=== PATIENT | male | born 1965 | race Caucasian/White ===

== ENCOUNTER 2017-08-16 07:52 | Inpatient (IN) | payer MEDICARE, MEDICAID ==
[~2017-08-16] VITALS: Ht 177.8 cm; Wt 748.9 kg
[~2017-08-16 07:52] MED LIST: LACO200T2 PO; LEVE100S PO; ZONI100C42 PO
[2017-08-16] MEDS ORDERED: LORAZEPAM 1 MG TABLET ONE (08:08)
--- NOTE | 2017-08-16 08:10 | NUR ---
PT BIBA FROM HOME S/P SEIZURE X 3 SINCE THIS AM. HX OF SZ. IV ACCESS CORPORATE LAW ASSISTANT. PT AAOX3. NO ORAL/ HEAD TRAUMA NOTED. VSS. SEEN BY FOR EVFERNANDO. SZ PRECUATIONS IMPLEMENTED. SAFETY AND COMFORT MEASURES PROVIDED. WILL MONITOR.
--- NOTE | 2017-08-16 08:20 | NUR ---
SAWDUST DRIER AT FOR BLOOD DRAW.
[2017-08-16] MEDS ORDERED: LORAZEPAM INJ 2 MG/ML VIAL IV ONE (08:30)
[2017-08-16] MEDS ORDERED: LEVETIRACETAM (500MG) 500 MG in IV NS 0.9% 100 ML IV SCH (08:30)
[2017-08-16 09:01] LABS: CREATININE 1.1 mg/dL (0.6-1.3); POTASSIUM 3.7 mmol/L (3.5-5.1)
--- NOTE | 2017-08-16 11:37 | NUR ---
DR ASHRAF ON THE PHONE WITH [facility]
--- NOTE | 2017-08-16 11:37 | NUR ---
CALLED [facility] FOR TRANSFER
--- NOTE | 2017-08-16 12:01 | NUR ---
PATIENT WILL NOT BE ADMITTED TO OUR [facility] IS AT [facility]
--- NOTE | 2017-08-16 12:16 | NUR ---
CALLED [facility] FOR PANEL
--- NOTE | 2017-08-16 12:16 | NUR ---
CALLED NURSE SUP FOR GINGER BED
--- NOTE | 2017-08-16 12:35 | NUR ---
REPORT GIVEN TO Keshawn THOMPSON RN
--- NOTE | 2017-08-16 12:35 | NUR ---
PT TAKEN TO CT.
[2017-08-16 13:30] VITALS: BP 137/93
--- NOTE | 2017-08-16 14:00 | NUR ---
RN INITIAL NOTE PATIENT RECEIVED IN BED RESTING. EASILY AROUSED. ALERT AND ORIENTED. ABLE TO MAKE NEEDS KNOWN. NO S/S OF PAIN OR DISCOMFORT. SINUS ON TELE MONITOR. NO S/S OF RESPIRATORY DISTRESS OR SOB. RESPIRATIONS ARE EVEN AND UNLABORED. SATING WELL ON ROOM AIR. SKIN IS WARM AND DRY TO TOUCH. IV SITE FLUSHED, PATENT. SAFETY PRECAUTIONS IMPLEMENTED, BED IN LOCKED, LOW POSITION WITH TWO SIDE RAILS UP. CALL LIGHT WITHIN REACH. WILL MONITOR CLOSELY.
[2017-08-16] MEDS ORDERED: ACETAMINOPHEN 325 MG TABLET PO PRN (14:30)
[2017-08-16] MEDS ORDERED: LORAZEPAM INJ 2 MG/ML VIAL IVP PRN (15:00)
[2017-08-16 16:00] VITALS: BP 122/76
[2017-08-16] MEDS ORDERED: FLU VACC QS 2017-18(36MOS+)/PF 0.5 ML DISP.SYRIN IM ONE (16:00)
--- NOTE | 2017-08-16 18:15 | NUR ---
RN CLOSING NOTE. PATIENT LEFT AMA. ADVISED TO STAY. PATIENT REFUSED. PAPERWORK SIGNED. IV SITE AND ID REMOVED. LEFT VIA PRIVATE CAR WITH HIS MOTHER.
[2017-08-16 18:35] LABS: ALBUMIN 4.1 g/dL (3.4-5.0); BILIRUBIN,TOTAL 0.4 mg/dL (0.2-1.0); MAGNESIUM 2.3 mg/dL (1.8-2.4); PHOSPHORUS 3.7 mg/dL (2.5-4.9); TOTAL PROTEIN, SERUM 7.8 g/dL (6.4-8.2)
[2017-08-16 20:23] LABS: BASOPHILS # (AUTO) 0.1 /CMM (0.0-0.2); BASOPHILS % (AUTO) 1.4 % (0.0-2.0); EOSINOPHILS % (AUTO) 0.5 % (0.0-6.0); HEMATOCRIT 45 % (39-51); HEMOGLOBIN 15.1 g/dL (13.5-17.5); LYMPHOCYTES # (AUTO) 1.9 /CMM (0.8-4.8); LYMPHOCYTES % (AUTO) 20.3 % (20.0-44.0); MEAN CORPUSCULAR HEMOGLOBIN 30 PG (26.0-33.0); MEAN CORPUSCULAR HGB CONC 34 g/dl (31.0-36.0); MEAN CORPUSCULAR VOLUME 89 fL (80-96); MONOCYTES # (AUTO) 0.6 /CMM (0.1-1.30); MONOCYTES % (AUTO) 6.1 % (2.0-12.0); NEUTROPHILS # (AUTO) 6.6 /CMM (1.8-8.9); NEUTROPHILS % (AUTO) 71.7 % (43.0-81.0); PLATELET COUNT (AUTO) 202 /CMM (150-450); RDW COEFFICIENT OF VARIATION 11.6 (11.5-15.0); RED BLOOD CELL COUNT(AUTO) 5.07 MIL/uL (4.5-6.0); WHITE BLOOD COUNT (AUTO) 9.2 K/uL (4.3-11.0)
[2017-08-16] MEDS ORDERED: LEVETIRACETAM (500MG) 750 MG in IV NS 0.9% 100 ML IV SCH (21:00)
== END 2017-08-16 18:20 | disposition left against medical advice (07) | DRG 101 ==
LOC: ER 07:55 → ICU 12:37
PROVIDERS: ADMIT Internal Medicine; ATTEND Internal Medicine
DX: G40.901 Epilepsy, unspecified, not intractable, with status epilepticus (principal); Z79.899 Other long term (current) drug therapy
CPT/HCPCS: 36415; 70450-TC; 71045-TC; 80048-TC; 80076-TC; 82542; 83735-TC; 84100-TC; 85025-TC; 87081-TC; A4606; J1953; J7030; Q2036; Z7610

== ENCOUNTER 2018-02-20 06:12 | Emergency (ER) | payer MEDICARE, MEDICAID ==
[~2018-02-20] VITALS: Ht 180.3 cm; Wt 77.1 kg
--- NOTE | 2018-02-20 06:33 | NUR ---
PT BIB [facility] C/C OF ALOC. SECONDARY TO SEIZURE. AA/OX 0. UNABLE TO ANSWER QUESTIONS OR FOLLOW COMMANDS. MINOR TRAUMA TO SIDES OF TONGUE WITH NO BLEEDING. NO TRAUMA NOTED FROM HEAD TO TOE. NO S/S OF SOB. VSS. AWAITING MD ORDERS.
[2018-02-20] MEDS ORDERED: LEVE1000 PO (06:34)
[2018-02-20] MEDS ORDERED: LORA1TAB PO (06:40)
--- NOTE | 2018-02-20 06:50 | NUR ---
EKG PERFORMED AT BEDSIDE
[2018-02-20 06:54] LABS: CALCIUM, SERUM 9.2 mg/dL (8.5-10.1); CREATININE 1.5 mg/dL (0.6-1.3); POTASSIUM 3.6 mmol/L (3.5-5.1)
[2018-02-20 07:00] LABS: ALBUMIN 3.9 g/dL (3.4-5.0); BILIRUBIN,DIRECT 0.1 mg/dL (0.0-0.2); BILIRUBIN,TOTAL 0.5 mg/dL (0.2-1.0); TOTAL PROTEIN, SERUM 7.5 g/dL (6.4-8.2)
[2018-02-20 07:12] LABS: BASOPHILS % (AUTO) 0.2 % (0.0-2.0); EOSINOPHILS % (AUTO) 0.5 % (0.0-6.0); HEMATOCRIT 41 % (39-51); HEMOGLOBIN 14.1 g/dL (13.5-17.5); LYMPHOCYTES # (AUTO) 1.4 /CMM (0.8-4.8); LYMPHOCYTES % (AUTO) 21.5 % (20.0-44.0); MEAN CORPUSCULAR HEMOGLOBIN 30 PG (26.0-33.0); MEAN CORPUSCULAR HGB CONC 35 g/dl (31.0-36.0); MEAN CORPUSCULAR VOLUME 87 fL (80-96); MONOCYTES # (AUTO) 0.5 /CMM (0.1-1.30); NEUTROPHILS # (AUTO) 4.7 /CMM (1.8-8.9); NEUTROPHILS % (AUTO) 70.8 % (43.0-81.0); PLATELET COUNT (AUTO) 189 /CMM (150-450); RDW COEFFICIENT OF VARIATION 11.9 (11.5-15.0); RED BLOOD CELL COUNT(AUTO) 4.67 MIL/uL (4.5-6.0); WHITE BLOOD COUNT (AUTO) 6.6 K/uL (4.3-11.0)
--- NOTE | 2018-02-20 07:19 | NUR ---
ENDORSED TO RAY. PT STABLE CONDITION. VSS.
--- NOTE | 2018-02-20 08:48 | NUR ---
dr jay salinas called at [phone], no staff available to take a call, unable to leave a message
--- NOTE | 2018-02-20 08:53 | NUR ---
[facility] called, left message for a call back
[2018-02-20] MEDS ORDERED: IV NS 0.9% 500 ML BAG IV ONE (09:00)
[2018-02-20] MEDS ORDERED: LEVETIRACETAM (500MG) 500 MG in IV NS 0.9% 100 ML IV ONE (09:00)
[2018-02-20] MEDS ORDERED: IV NS 0.9% 1,000 ML BAG IV ONE (09:00)
--- NOTE | 2018-02-20 09:10 | NUR ---
ORDERS CARRIED OUT. PT'S BROTHER AT BS WITH AND UPDATED WITH POC.
--- NOTE | 2018-02-20 09:31 | NUR ---
Keppra infusion: started aty 0900 am- endtime 930; PIV # 20 LH
--- NOTE | 2018-02-20 10:01 | NUR ---
LATE ENTRY- ENDTIME FOR [facility] IVPB 1001.
--- NOTE | 2018-02-20 11:03 | NUR ---
VINH MARTINEZ AT [facility], ACCEPTED BY JEREMY HERZOG AT [phone] IS ARRANGING OR OBTAINING A BED, DR SUNG AWARE
--- NOTE | 2018-02-20 12:00 | NUR ---
REPORT GIVEN TO JEREMY POPE FROM [facility]. THEN WILL CALL US BACK FOR ROOM ONCE AVAILABLE.
--- NOTE | 2018-02-20 12:15 | NUR ---
PT REFUSED ANY FOOD AND DRINKS.
--- NOTE | 2018-02-20 14:15 | NUR ---
CALLED [facility] TRANSFER CENTER AND SPOKE TO EILEEN FOR AN UPDATE AND WAS TOLD THAT THEY WERE STILL WAITING ON A BED ASSIGNMENT. THEY WILL CALL BACK SOON ONE IS CLEARED UP.
--- NOTE | 2018-02-20 15:10 | NUR ---
PROVIDED PT WITH WATER TO DRINK.
--- NOTE | 2018-02-20 16:04 | NUR ---
[facility] CALLED REGARDING TX INFORMATION. PATIENT WILL BE GOING TO ROOM [id number] CALLED [facility] FOR TRANSPORT ETA OF [id number] WAS GIVEN. TRIP#[id number]
[2018-02-20 16:50] VITALS: BP 136/88
--- NOTE | 2018-02-20 17:45 | NUR ---
REPORT GIVEN TO [facility] UNIT 119 FOR TRANSPORT TO [facility].
== END 2018-02-20 17:54 | disposition short-term general hospital (02) ==
LOC: ER 06:14
DX: G40.909 Epilepsy, unspecified, not intractable, without status epilepticus (principal); R94.31 Abnormal electrocardiogram [ECG] [EKG]; R79.89 Other specified abnormal findings of blood chemistry
CPT/HCPCS: 36415; 80048-TC; 80076-TC; 82542; 82962-TC; 85025-TC; A4606; J1953; J7030; J7040; Z7610

== ENCOUNTER 2018-03-03 23:20 | Emergency (ER) | payer MEDICARE, MEDICAID ==
[~2018-03-03] VITALS: Ht 177.8 cm; Wt 75.3 kg
[~2018-03-03 23:20] MED LIST changes: +LEVE1000 PO; +LORA1TAB PO
--- NOTE | 2018-03-03 23:20 | NUR ---
BIB RA 88 FROM HOME, WITNESSED SEIZURE. NON VERBAL BISQUE TILE BURNER. VSS NAD AT THIS TIME. PATIENT IS ABLE TO TRACK WITH EYE MOVEMENT BUT CANNOT VERBALIZE. WILL CONTINUE TO MONITOR FOR ANY CHANGES DURING THE SHIFT. [facility]
--- NOTE | 2018-03-03 23:21 | NUR ---
ER AT BEDSIDE FOR EVAL
--- NOTE | 2018-03-03 23:57 | NUR ---
FAMILY AT BEDSIDE
[2018-03-04] MEDS ORDERED: IV NS 0.9% 1,000 ML BAG IV ONE (00:30)
[2018-03-04] MEDS ORDERED: LORAZEPAM INJ 2 MG/ML VIAL IVP ONE (00:30)
[2018-03-04] MEDS ORDERED: LORAZEPAM INJ 2 MG/ML VIAL ONE (00:33)
[2018-03-04 00:48] LABS: BASOPHILS % (AUTO) 0.1 % (0.0-2.0); EOSINOPHILS % (AUTO) 0.1 % (0.0-6.0); HEMATOCRIT 46 % (39-51); HEMOGLOBIN 15.1 g/dL (13.5-17.5); LYMPHOCYTES # (AUTO) 1.1 /CMM (0.8-4.8); LYMPHOCYTES % (AUTO) 11.6 % (20.0-44.0); MEAN CORPUSCULAR HEMOGLOBIN 30 PG (26.0-33.0); MEAN CORPUSCULAR HGB CONC 33 g/dl (31.0-36.0); MEAN CORPUSCULAR VOLUME 90 fL (80-96); MONOCYTES # (AUTO) 0.3 /CMM (0.1-1.30); MONOCYTES % (AUTO) 3.1 % (2.0-12.0); NEUTROPHILS % (AUTO) 85.1 % (43.0-81.0); PLATELET COUNT (AUTO) 250 /CMM (150-450); RDW COEFFICIENT OF VARIATION 12.6 (11.5-15.0); WHITE BLOOD COUNT (AUTO) 9.4 K/uL (4.3-11.0)
[2018-03-04 01:04] LABS: CREATININE 1.1 mg/dL (0.6-1.3); POTASSIUM 3.6 mmol/L (3.5-5.1)
[2018-03-04] MEDS ORDERED: PERA2TAB PO (01:04)
--- NOTE | 2018-03-04 01:08 | NUR ---
[facility] BROTHER CELL PHONE NUMBER [phone]
[2018-03-04 01:24] LABS: BILIRUBIN,TOTAL 0.2 mg/dL (0.2-1.0); TOTAL PROTEIN, SERUM 7.7 g/dL (6.4-8.2)
--- NOTE | 2018-03-04 02:33 | NUR ---
CALLED [facility] FOR NEUROLOGIST WANG CORDOVA. OSMANY CALL BACK FROM NEUROLOGY CENTER MACHINE UMBRELLA TIPPER
--- NOTE | 2018-03-04 02:33 | NUR ---
[facility] CASINO DUTY MANAGER NUMBER IS [phone]
[2018-03-04 05:53] VITALS: BP 135/94
== END 2018-03-04 05:54 | disposition home or self-care (01) ==
LOC: ER 23:23
DX: G40.909 Epilepsy, unspecified, not intractable, without status epilepticus (principal); Z79.899 Other long term (current) drug therapy
CPT/HCPCS: 36415; 80048; 80076; 82962; 85025; 96374; 99284; A4606; J2060; J7030; Z7610

== ENCOUNTER 2018-03-04 06:20 | Emergency (ER) | payer MEDICARE, MEDICAID ==
[~2018-03-04] VITALS: Ht 175.3 cm; Wt 81.2 kg
[~2018-03-04 06:20] MED LIST changes: +PERA2TAB PO
--- NOTE | 2018-03-04 06:20 | NUR ---
PT BB AMBULANCE AFTER LEAVING EARLIER IN SHIFT BACK TO HOME. TERRY REPORTED THAT THE FAMILY STATED "HE IS NOT NORMAL. LOOK HE IS HAVING A SEIZURE". ACCORDING TO [facility] STAFF HE WAS THE SAME HE WAS WHEN HE LEFT THE HOSPITAL. FAMILY WAS CALLED AND TOLD THAT THIS PATIENT WAS STABLE AND ON THE WAY BACK HOME BEFORE HAND. PT IS HYPERTENSIVE BUT OTHERWISE VSS WITH NO ACUTE DISTRESS NOTED AT THIS TIME. PT IS NONVERBAL. BREATHING WNL WITH ADEQUATE CHEST RISE AND FALL. WILL CONTINUE TO MONITOR FOR ANY CHANGES DURING THE SHIFT.
--- NOTE | 2018-03-04 06:21 | NUR ---
ER AT BEDSIDE
--- NOTE | 2018-03-04 06:37 | NUR ---
VETERINARY PRACTITIONER AT BEDSIDE FOR BLOOD DRAW
[2018-03-04 06:39] LABS: BASOPHILS # (AUTO) 0.1 /CMM (0.0-0.2); BASOPHILS % (AUTO) 0.5 % (0.0-2.0); EOSINOPHILS % (AUTO) 0.2 % (0.0-6.0); HEMATOCRIT 48 % (39-51); HEMOGLOBIN 15.7 g/dL (13.5-17.5); LYMPHOCYTES # (AUTO) 1.9 /CMM (0.8-4.8); LYMPHOCYTES % (AUTO) 15.6 % (20.0-44.0); MEAN CORPUSCULAR HEMOGLOBIN 30 PG (26.0-33.0); MEAN CORPUSCULAR HGB CONC 33 g/dl (31.0-36.0); MEAN CORPUSCULAR VOLUME 91 fL (80-96); MONOCYTES # (AUTO) 0.5 /CMM (0.1-1.30); MONOCYTES % (AUTO) 3.7 % (2.0-12.0); NEUTROPHILS # (AUTO) 9.7 /CMM (1.8-8.9); PLATELET COUNT (AUTO) 262 /CMM (150-450); RDW COEFFICIENT OF VARIATION 12.6 (11.5-15.0); RED BLOOD CELL COUNT(AUTO) 5.26 MIL/uL (4.5-6.0); WHITE BLOOD COUNT (AUTO) 12.1 K/uL (4.3-11.0)
--- NOTE | 2018-03-04 06:58 | NUR ---
CALLED [facility] NEUROLOGIST AT HOME INDEPENDENT CALL CENTER AGENT MD CORCORAN FOR TO MD CONSULT REGARDING A TRANSFER. PHONE NUMBER FOR AT HOME INDEPENDENT CALL CENTER AGENT [facility] GOLDBEATER IS [phone]
[2018-03-04 06:59] LABS: CALCIUM, SERUM 9.1 mg/dL (8.5-10.1); POTASSIUM 3.6 mmol/L (3.5-5.1)
[2018-03-04] MEDS ORDERED: LABETALOL HCL IV 100MG VIAL IV ONE (07:00)
[2018-03-04] MEDS ORDERED: LABETALOL HCL IV 100MG VIAL ONE (07:00)
--- NOTE | 2018-03-04 07:03 | NUR ---
18G IV TO L FA X 1 ATTEMPT USING ASEPTIC TECH. IV FLUSHES EASILY WITH NS, NO S/S INFILTRATION NOTED AT THIS TIME.
--- NOTE | 2018-03-04 07:11 | NUR ---
TE[employer] AUTOMOBILE ASSEMBLER NEUROLOGIST MD CORCORAN HAS STATED TO TRANSFER ER TO ER AND THAT ER PHYSICIAN WOULD BE MADE AWARE ABOUT THE CASE
--- NOTE | 2018-03-04 09:42 | NUR ---
Called [facility] transfer line for update. States that ER attending is still reviewing the case
--- NOTE | 2018-03-04 10:00 | NUR ---
Pt accepted to [facility] ER Accepting MD is Dr. Farrell Number for report is [phone]
--- NOTE | 2018-03-04 10:03 | NUR ---
transport called [facility] is 60 min per [facility] trip number [phone]
--- NOTE | 2018-03-04 11:13 | NUR ---
Report given to Janis POPE for continuity of care at [facility] ER
[2018-03-04 11:14] VITALS: BP 132/85
== END 2018-03-04 11:16 | disposition short-term general hospital (02) ==
LOC: ER 06:22
DX: R56.9 Unspecified convulsions (principal); F41.9 Anxiety disorder, unspecified; F32.9 Major depressive disorder, single episode, unspecified
CPT/HCPCS: 36415; 80048-TC; 85025-TC; A4606; J3490; Z7610

== ENCOUNTER 2019-07-02 20:59 | Emergency (ER) | payer MEDICARE, MEDICAID ==
[~2019-07-02] VITALS: Ht 175.3 cm; Wt 80.3 kg
[~2019-07-02 20:59] MED LIST changes: -PERA2TAB PO
--- NOTE | 2019-07-02 21:10 | NUR ---
biba found face down on the floor s/p possible seizure ([facility]: seizure) , pt a, ox1. noted w/ eye swelling and lac on the eyebrow. will cont to monitor ,
--- NOTE | 2019-07-02 21:16 | NUR ---
pa at the bed side
[2019-07-02] MEDS ORDERED: LEVETIRACETAM (500MG) 1,000 MG in IV NS 0.9% 100 ML IV STA (21:19)
[2019-07-02] MEDS ORDERED: IV NS 0.9% 1,000 ML BAG IV ONE (21:30)
[2019-07-02] MEDS ORDERED: LEVETIRACETAM (500MG) 500 MG/5 ML VIAL IV ONE (21:38)
[2019-07-02 21:39] LABS: BASOPHILS # (AUTO) 0.1 /CMM (0.0-0.2); EOSINOPHILS % (AUTO) 3.8 % (0.0-6.0); HEMATOCRIT 43 % (39-51); HEMOGLOBIN 14.3 g/dL (13.5-17.5); LYMPHOCYTES # (AUTO) 1.5 /CMM (0.8-4.8); LYMPHOCYTES % (AUTO) 26.7 % (20.0-44.0); MEAN CORPUSCULAR HGB CONC 33 g/dl (31.0-36.0); MEAN CORPUSCULAR VOLUME 89 fL (80-96); MONOCYTES # (AUTO) 0.4 /CMM (0.1-1.30); MONOCYTES % (AUTO) 7.1 % (2.0-12.0); NEUTROPHILS # (AUTO) 3.4 /CMM (1.8-8.9); NEUTROPHILS % (AUTO) 61.4 % (43.0-81.0); PLATELET COUNT (AUTO) 211 /CMM (150-450); RED BLOOD CELL COUNT(AUTO) 4.86 MIL/uL (4.5-6.0); WHITE BLOOD COUNT (AUTO) 5.6 K/uL (4.3-11.0)
[2019-07-02 21:46] LABS: CALCIUM, SERUM 9.4 mg/dL (8.5-10.1); CREATININE 1.1 mg/dL (0.6-1.3)
--- NOTE | 2019-07-02 23:29 | NUR ---
good skin care on r eyebrow abrasion privided. area was cleaned , atb ointment applied and covered w/ DD.
--- NOTE | 2019-07-03 | NUR ---
PT ALERT AND ORIENTED. MOM AT THE BED SIDE. PT REPORTED WILLING TO LEAVE AND ABLE TO AMBULATE IN STEADY GAITS.
--- NOTE | 2019-07-03 00:04 | NUR ---
IV removed. Catheter intact and site benign. Pressure and 4x4 applied to site. No bleeding noted.Patient discharged to home in stable condition. Rx and Written and verbal after care instructions given. Patient verbalizes understanding of instruction. pt left the hospital with his mom.
[2019-07-03 00:05] VITALS: BP 148/77
== END 2019-07-03 00:06 | disposition home or self-care (01) ==
LOC: ER 21:05
DX: G40.909 Epilepsy, unspecified, not intractable, without status epilepticus (principal); F41.9 Anxiety disorder, unspecified; F32.9 Major depressive disorder, single episode, unspecified; Z79.899 Other long term (current) drug therapy
CPT/HCPCS: 36415; 70450; 70486; 72125; 73130; 80048; 80177; 85025; 96365; 99284; J1953; J7030 ×2

== ENCOUNTER 2019-09-29 19:19 | Emergency (ER) | payer MEDICARE, MEDICAID ==
--- NOTE | 2019-09-29 19:20 | NUR ---
BIB EMS C/O SEIZURE. UPON ARRIVAL TO ER PT REFUSING TRIAGE ASSESSMENT. ER MD FRANK AWARE. PENDING DISPOSITION.
--- NOTE | 2019-09-29 19:20 | NUR ---
PT AAO4, REFUSEING TRIAGE ASSESSMENT AND V/S. ER MD MADE AWARE. PT FAMILY AT BEDSIDE.
--- NOTE | 2019-09-29 20:00 | NUR ---
Dr. Ashley at bedside talking to pt and pt family member regarding risks of leaving AMA. pt aaox4. pt brother at bedside.
--- NOTE | 2019-09-29 20:05 | NUR ---
Patient does not wish to proceed with medical care recommended by Dr. GRACIA). Patient given information related to possible complications, up to and including , which could occur as a result of leaving the hospital at this time. Patient verbalizes understanding of risks involved due to leaving against medical advice. Patient has signed AMA form. Pt aaox4 no acute distress noted, resp even and unlabored. pt family member at bedside to take pt home.
== END 2019-09-29 20:25 | disposition left against medical advice (07) ==
LOC: ER 19:25
DX: Z53.21 Procedure and treatment not carried out due to patient leaving prior to being seen by health care provider (principal); R56.9 Unspecified convulsions

== ENCOUNTER 2024-10-20 10:31 | Inpatient (IN) | payer MEDICARE, MEDICAID ==
[~2024-10-20] VITALS: Ht 175.3 cm; Wt 80.3 kg
[2024-10-20 11:22] LABS: BASOPHILS % (AUTO) 0.3 % (0.0-2.0); EOSINOPHILS % (AUTO) 0.1 % (0.0-6.0); HEMATOCRIT 46 % (39-51); HEMOGLOBIN 15.5 g/dL (13.5-17.5); LYMPHOCYTES # (AUTO) 1.7 K/uL (0.8-4.8); LYMPHOCYTES % (AUTO) 12.2 % (20.0-44.0); MEAN CORPUSCULAR HEMOGLOBIN 29 PG (26.0-33.0); MEAN CORPUSCULAR HGB CONC 34 g/dl (31.0-36.0); MEAN CORPUSCULAR VOLUME 85 fL (80-96); MONOCYTES % (AUTO) 7.1 % (2.0-12.0); NEUTROPHILS % (AUTO) 80.3 % (43.0-81.0); PLATELET COUNT (AUTO) 187 K/uL (150-450); RED BLOOD CELL COUNT(AUTO) 5.38 MIL/uL (4.5-6.0); RED CELL DISTRIBUTION WIDTH 13.4 % (11.5-15.0); WHITE BLOOD COUNT (AUTO) 13.6 K/uL (4.3-11.0)
[2024-10-20 11:49] LABS: CALCIUM, SERUM 9.1 mg/dL (8.5-10.1); CREATININE 1.3 mg/dL (0.6-1.3)
[2024-10-20] MEDS: LEVETIRACETAM (500MG) 1,500 MG in IV NS 0.9% 85 ML IV ONE (11:53)
[2024-10-20 11:56] LABS: ALBUMIN 4.3 g/dL (3.4-5.0); BILIRUBIN,DIRECT 0.1 mg/dL (0.0-0.2); BILIRUBIN,TOTAL 0.6 mg/dL (0.2-1.0)
[2024-10-20] MEDS ORDERED: LORAZEPAM INJ 2 MG/ML VIAL ONE (15:14)
[2024-10-20] MEDS: LORAZEPAM INJ 2 MG/ML VIAL IV ONE (15:28)
[2024-10-20] MEDS: IV NS 0.9% 1,000 ML IV ONE (15:58)
[2024-10-20] MEDS ORDERED: CANN100S PO (16:36)
[2024-10-20] MEDS ORDERED: LEVE500T19 PO (16:36)
[2024-10-20] MEDS ORDERED: ACETAMINOPHEN 325 MG TABLET PO PRN (18:00)
[2024-10-20] MEDS ORDERED: MAGNESIUM HYDROXIDE 30 ML UDC PO PRN (18:00)
[2024-10-20] MEDS ORDERED: LORAZEPAM INJ 2 MG/ML VIAL IV PRN (18:00)
[2024-10-20] MEDS ORDERED: MAG HYDROX/AL HYDROX/SIMETH 30 ML UDC PO PRN (18:00)
[2024-10-20] MEDS ORDERED: Z GUARD REMEDY 4 OZ OINT TP PRN (18:00)
[2024-10-20] MEDS ORDERED: ONDANSETRON HCL/PF 4 MG/2 ML VIAL IVP PRN (18:00)
[2024-10-20 20:00] VITALS: BP 146/86; TEMP 98.2; O2SAT 99
[2024-10-20] MEDS ORDERED: LEVETIRACETAM (500MG) 500 MG/5 ML VIAL IV ONE ×2 (22:26→22:31)
[2024-10-20] MEDS: LEVETIRACETAM (500MG) 2,000 MG in IV NS 0.9% 80 ML IV SCH (22:59)
[2024-10-21] VITALS: BP 130/76; TEMP 98.2; O2SAT 99
[2024-10-21 04:00] VITALS: BP 115/64; TEMP 98.2; O2SAT 98
[2024-10-21] MEDS: PANTOPRAZOLE 40 MG TABLET.DR PO SCH (07:30)
[2024-10-21 08:32] LABS: CALCIUM, SERUM 8.6 mg/dL (8.5-10.1); CREATININE 0.9 mg/dL (0.6-1.3); MAGNESIUM 2.7 mg/dL (1.8-2.4); PHOSPHORUS 2.3 mg/dL (2.5-4.9); POTASSIUM 3.7 mmol/L (3.5-5.1)
[2024-10-21] MEDS: LACOSAMIDE 50 MG TABLET PO SCH (08:46)
[2024-10-21] MEDS: ZONISAMIDE 100 MG CAPSULE PO SCH (08:46)
[2024-10-21 08:59] LABS: BASOPHILS % (AUTO) 0.4 % (0.0-2.0); EOSINOPHILS # (AUTO) 0.1 K/uL (0.0-0.7); EOSINOPHILS % (AUTO) 0.5 % (0.0-6.0); HEMATOCRIT 46 % (39-51); HEMOGLOBIN 15.2 g/dL (13.5-17.5); LYMPHOCYTES # (AUTO) 2.1 K/uL (0.8-4.8); LYMPHOCYTES % (AUTO) 17.8 % (20.0-44.0); MEAN CORPUSCULAR HEMOGLOBIN 29 PG (26.0-33.0); MEAN CORPUSCULAR HGB CONC 33 g/dl (31.0-36.0); MEAN CORPUSCULAR VOLUME 87 fL (80-96); MONOCYTES # (AUTO) 1.1 K/uL (0.1-1.30); MONOCYTES % (AUTO) 9.7 % (2.0-12.0); NEUTROPHILS # (AUTO) 8.3 K/uL (1.8-8.9); NEUTROPHILS % (AUTO) 71.6 % (43.0-81.0); PLATELET COUNT (AUTO) 183 K/uL (150-450); RED BLOOD CELL COUNT(AUTO) 5.33 MIL/uL (4.5-6.0); RED CELL DISTRIBUTION WIDTH 13.1 % (11.5-15.0); WHITE BLOOD COUNT (AUTO) 11.6 K/uL (4.3-11.0)
[2024-10-21] MEDS: K PHOS NEUTRAL 250 MG TABLET PO ONE (16:30)
[2024-10-21 20:00] VITALS: BP 132/89; TEMP 97.5; O2SAT 97
[2024-10-22] VITALS: BP 134/86; TEMP 98.1; O2SAT 97
[2024-10-22 07:15] LABS: CALCIUM, SERUM 9.1 mg/dL (8.5-10.1); CREATININE 1.2 mg/dL (0.6-1.3); PHOSPHORUS 2.6 mg/dL (2.5-4.9); POTASSIUM 3.7 mmol/L (3.5-5.1)
[2024-10-22 08:00] VITALS: BP 137/87; TEMP 98; O2SAT 98
[2024-10-22 12:01] VITALS: BP 130/95; TEMP 97.7; O2SAT 97
== END 2024-10-22 17:30 | disposition home or self-care (01) | DRG 101 ==
LOC: ER 10:31 → EDBD 10:31 → TELE 17:18 → MED 10-22 13:19
PROVIDERS: ADMIT Nurse Practitioner Family; ATTEND Nurse Practitioner Acute Care
DX: G40.909 Epilepsy, unspecified, not intractable, without status epilepticus (principal); D72.829 Elevated white blood cell count, unspecified; E66.3 Overweight; Z79.899 Other long term (current) drug therapy; E83.41 Hypermagnesemia; E83.39 Other disorders of phosphorus metabolism; Z68.26 Body mass index [BMI] 26.0-26.9, adult; R79.89 Other specified abnormal findings of blood chemistry
CPT/HCPCS: 36415; 70450-TC; 71045-TC; 80048-TC; 80076-TC; 82607-TC; 82962-TC; 83735-TC; 84100-TC; 85025-TC; 92526; 92611-TC; 97112-TC; 97116-TC; 97530-TC; A4223; G0378; J1953; J2060; J7030; J7050

== ENCOUNTER 2025-07-06 19:54 | Inpatient (IN) | payer MEDICARE, MEDICAID ==
[~2025-07-06] VITALS: Ht 180.3 cm; Wt 99.8 kg
[~2025-07-06 19:54] MED LIST changes: +CANN100S PO; -LEVE1000 PO; -LEVE100S PO; +LEVE500T19 PO; -LORA1TAB PO
[2025-07-06] MEDS ORDERED: LEVETIRACETAM (500MG) 500 MG/5 ML VIAL IV ONE (20:03)
[2025-07-06] MEDS: LEVETIRACETAM (500MG) 1,000 MG in IV NS 0.9% 90 ML IV STA (20:21)
[2025-07-06] MEDS: IV NS 0.9% 1,000 ML BAG IV ONE (20:21)
[2025-07-06 20:27] LABS: PLATELET COUNT (AUTO) 229 K/uL (150-450); RED BLOOD CELL COUNT(AUTO) 5.23 MIL/uL (4.5-6.0); RED CELL DISTRIBUTION WIDTH 13.3 % (11.5-15.0); WHITE BLOOD COUNT (AUTO) 6.1 K/uL (4.3-11.0)
[2025-07-06 20:33] LABS: CALCIUM, SERUM 9.2 mg/dL (8.5-10.1); CREATININE 1.4 mg/dL (0.6-1.3); SODIUM SERUM 143 mmol/L (136-145); UREA NITROGEN, BLOOD 19 mg/dL (7-18)
[2025-07-06 20:38] LABS: ALCOHOL, BLOOD < 3 mg/dL (0-10)
[2025-07-06 22:02] LABS: AMPHETAMINE, URINE NEGATIVE (NEGATIVE); BARBITURATE, URINE NEGATIVE (NEGATIVE); COCCAINE, URINE NEGATIVE (NEGATIVE); OPIATE, URINE NEGATIVE (NEGATIVE)
[2025-07-06 22:07] LABS: BENZODIAZEPINE, URINE POSITIVE (NEGATIVE); CANNABINOID, URINE POSITIVE (NEGATIVE)
[2025-07-06 22:16] LABS: PHOSPHORUS 4.4 mg/dL (2.5-4.9)
[2025-07-06] MEDS ORDERED: ACETAMINOPHEN 325 MG TABLET PO PRN (23:30)
[2025-07-06] MEDS ORDERED: LORAZEPAM INJ 2 MG/ML VIAL IV PRN (23:30)
[2025-07-06] MEDS ORDERED: Z GUARD REMEDY 4 OZ OINT TP PRN (23:30)
[2025-07-06] MEDS ORDERED: ONDANSETRON HCL/PF 4 MG/2 ML VIAL IVP PRN (23:30)
[2025-07-06 23:32] LABS: APPEARANCE,URINE CLEAR (CLEAR); BLOOD, URINE NEGATIVE Ery/uL (NEGATIVE); LEUKOCYTE ESTERASE ,URINE NEGATIVE (NEGATIVE); NITRITE, URINE NEGATIVE (NEGATIVE); UGLUCOSE NEGATIVE (NEGATIVE)
[2025-07-07] VITALS: BP 143/98; TEMP 98.1; O2SAT 99
[2025-07-07] MEDS: LACOSAMIDE 50 MG TABLET PO SCH (00:18)
[2025-07-07] MEDS: IV 1/2NS 1000 ML 1,000 ML IV ONE (00:20)
[2025-07-07] MEDS: ENOXAPARIN SODIUM 40 MG/0.4 ML DISP.SYRIN SQ SCH (00:20)
[2025-07-07] MEDS ORDERED: LEVETIRACETAM (500MG) 500 MG/5 ML VIAL IV ONE ×2 (01:43→02:02)
[2025-07-07] MEDS: LEVETIRACETAM (500MG) 1,500 MG in IV NS 0.9% 85 ML IV ONE (02:08)
[2025-07-07 04:00] VITALS: BP 111/80; TEMP 97.8; O2SAT 98
[2025-07-07] MEDS: PANTOPRAZOLE 40 MG TABLET.DR PO SCH (07:44)
[2025-07-07 08:31] LABS: CALCIUM, SERUM 8.9 mg/dL (8.5-10.1); CREATININE 1.2 mg/dL (0.6-1.3); PHOSPHORUS 2.9 mg/dL (2.5-4.9); PLATELET COUNT (AUTO) 227 K/uL (150-450); RED BLOOD CELL COUNT(AUTO) 4.64 MIL/uL (4.5-6.0); RED CELL DISTRIBUTION WIDTH 13.0 % (11.5-15.0); SODIUM SERUM 142.0 mmol/L (136-145); UREA NITROGEN, BLOOD 16.0 mg/dL (7-18); WHITE BLOOD COUNT (AUTO) 6.1 K/uL (4.3-11.0)
[2025-07-07] MEDS ORDERED: BUDE10.22 INH (08:33)
[2025-07-07] MEDS ORDERED: ZONISAMIDE 100 MG CAPSULE PO SCH (09:00)
[2025-07-07 09:20] VITALS: BP 122/85; TEMP 98.1; O2SAT 97
[2025-07-07] MEDS: LEVETIRACETAM (250 MG) 250 MG TABLET PO SCH (09:33)
[2025-07-07] MEDS ORDERED: CLOP75TA15 PO (10:14)
[2025-07-07] MEDS ORDERED: [UNRECOGNIZED DRUG - OTHER] BNOSTRILS (10:14)
[2025-07-07] MEDS ORDERED: ATOR40TA PO (10:14)
[2025-07-07] MEDS ORDERED: ASPI-1169 PO (10:14)
[2025-07-07] MEDS ORDERED: AMLO-212 PO (10:14)
[2025-07-07] MEDS ORDERED: LACO150T2 PO (10:18)
[2025-07-07] MEDS: ZONISAMIDE 100 MG CAPSULE PO SCH (11:19)
[2025-07-07] MEDS: POTASSIUM CHLORIDE 20 MEQ TAB.PRT.SR PO SCH (12:12)
[2025-07-07] MEDS: MUPIROCIN OINT 2% 22 GM TUBE NS SCH (13:04)
[2025-07-07 20:00] VITALS: BP 115/78; TEMP 98.1; O2SAT 100
[2025-07-07 20:42] VITALS: BP 115/78; TEMP 98.2; O2SAT 100
[2025-07-08] VITALS: BP 128/82; TEMP 98.1; O2SAT 97
[2025-07-08 00:10] VITALS: BP 128/82; TEMP 98.1; O2SAT 97
[2025-07-08 04:00] VITALS: BP 131/87; TEMP 97.9; O2SAT 99
[2025-07-08 04:06] VITALS: BP 131/87; TEMP 97.9; O2SAT 99
[2025-07-08 07:00] VITALS: BP 127/87; TEMP 97.5; O2SAT 98
[2025-07-08 07:05] LABS: PLATELET COUNT (AUTO) 224 K/uL (150-450); RED BLOOD CELL COUNT(AUTO) 4.84 MIL/uL (4.5-6.0); RED CELL DISTRIBUTION WIDTH 13.2 % (11.5-15.0); WHITE BLOOD COUNT (AUTO) 5.7 K/uL (4.3-11.0)
[2025-07-08 07:57] LABS: CALCIUM, SERUM 8.5 mg/dL (8.5-10.1); CREATININE 1.0 mg/dL (0.6-1.3); PHOSPHORUS 2.9 mg/dL (2.5-4.9); SODIUM SERUM 142.0 mmol/L (136-145); UREA NITROGEN, BLOOD 14.0 mg/dL (7-18)
[2025-07-08] MEDS: FLUTICASONE/VILANTEROL 1 EACH BLST.W.DEV IH SCH (08:38)
[2025-07-08] MEDS: CLOPIDOGREL BISULFATE 75 MG TABLET PO SCH (08:39)
[2025-07-08] MEDS: ASPIRIN 81 MG TAB.CHEW PO SCH (08:39)
[2025-07-08] MEDS: ATORVASTATIN 40 MG TABLET PO SCH (08:39)
[2025-07-08 08:42] VITALS: BP 127/87
[2025-07-08] MEDS: AMLODIPINE BESYLATE 5 MG TABLET PO SCH (08:42)
[2025-07-08] MEDS ORDERED: MUPI22OI7 NS (10:45)
[2025-07-08] MEDS ORDERED: ZONI100C42 PO (10:45)
[2025-07-08] MEDS ORDERED: LEVE100023 PO (10:45)
[2025-07-08] MEDS ORDERED: LACO200T2 PO (10:45)
== END 2025-07-08 13:45 | disposition home or self-care (01) | DRG 100 ==
LOC: ER 19:56 → TELE 21:18
PROVIDERS: ADMIT Nurse Practitioner Family; ATTEND Nurse Practitioner Acute Care
DX: G40.909 Epilepsy, unspecified, not intractable, without status epilepticus (principal); N17.0 Acute kidney failure with tubular necrosis; E66.9 Obesity, unspecified; I10 Essential (primary) hypertension; Z79.899 Other long term (current) drug therapy; Z98.2 Presence of cerebrospinal fluid drainage device; E78.5 Hyperlipidemia, unspecified; L60.3 Nail dystrophy; S90.412A Abrasion, left great toe, initial encounter; S90.411A Abrasion, right great toe, initial encounter; X58.XXXA Exposure to other specified factors, initial encounter; Y93.9 Activity, unspecified; Y92.009 Unspecified place in unspecified non-institutional (private) residence as the place of occurrence of the external cause; E86.9 Volume depletion, unspecified; Z86.73 Personal history of transient ischemic attack (TIA), and cerebral infarction without residual deficits; Z68.30 Body mass index [BMI] 30.0-30.9, adult
CPT/HCPCS: 36415; 70450-TC; 71045-TC; 80048-TC; 83735-TC; 84100-TC; 85025-TC; 95819-TC; 97112-TC; 97116-TC; 97530-TC; A4223; G0378; G0480; J1650; J1953; J7030